=== PATIENT | female | born 1975 | race Caucasian/White ===

== ENCOUNTER 2021-04-28 21:18 | Inpatient (IN) | payer MEDICARE, OTHER ==
[~2021-04-28] VITALS: Ht 170.2 cm; Wt 215.9 kg
[2021-04-28 23:06] VITALS: BP 101/58
[2021-04-28] MEDS ORDERED: PROPOFOL IV EMULSION 10MG/ML 100 ML ONE (23:25)
[2021-04-28] MEDS ORDERED: NOREPINEPHRINE 8 MG/D5W 250 ML 250 ML ONE (23:42)
[2021-04-28] MEDS ORDERED: FENTANYL 2000MCG/NS 250 250 ML ONE (23:43)
[2021-04-28] MEDS: NOREPINEPHRINE 8 MG/D5W 250 ML 250 ML IV SCH (23:45)
[2021-04-28] MEDS ORDERED: FENTANYL CITRATE INJ 2,000 MCG in SODIUM CHLORIDE 0.9% 250ML 250 ML IV SCH (23:45)
[2021-04-28] MEDS ORDERED: PIPERACILLIN/TAZOBACTAM 3.375 GM in SODIUM CHLORIDE 0.9% 50ML 50 ML IV ONE (23:45)
[2021-04-29] VITALS (27 sets, daily range): BP systolic 70–127; BP diastolic 43–66
[2021-04-29 00:15] LABS: BASOPHILS % 0.2 % (0.0-1.0); HEMOGLOBIN 12.7 g/dL (12.0-16.0); LYMPHOCYTES # (AUTO) 0.6 (1.0-3.2); LYMPHOCYTES % 4.3 % (18.0-39.1); MEAN CORPUSCULAR HEMOGLOBIN 29.7 pg (28-32); MEAN CORPUSCULAR HGB CONC 30.2 g/dL (31-35); MEAN CORPUSCULAR VOLUME 98.4 fL (81-99); MONOCYTES # (AUTO) 1.1 (0.2-0.8); MONOCYTES % 8.9 % (4.4-11.3); NEUTROPHILS # (AUTO) 10.9 (2.1-6.9); NEUTROPHILS % 85.7 % (38.7-80.0); PLATELET COUNT 246 x10e3/uL (140-360); RED BLOOD COUNT 4.27 x10e6/uL (3.6-5.1); RED CELL DISTRIBUTION WIDTH 14.9 % (11.7-14.4)
[2021-04-29 00:25] LABS: INR 1.07; PROTHROMBIN TIME 14.1 seconds (11.9-14.5)
[2021-04-29 00:26] LABS: PARTIAL THROMBOPLASTIN TIME 25.2 seconds (23.8-35.5)
[2021-04-29 00:35] LABS: ALBUMIN 3.1 g/dL (3.5-5.0); ALBUMIN/GLOBULIN RATIO 0.9 (0.8-2.0); ANION GAP 18.4 mmol/L (8-16); CALCIUM 8.6 mg/dL (8.4-10.2); CREATININE, SERUM 1.39 mg/dL (0.57-1.11); POTASSIUM 4.4 mmol/L (3.5-5.1)
[2021-04-29] MEDS ORDERED: LYRICA150 MG PO (00:39)
[2021-04-29] MEDS ORDERED: METFORMIN HCL500 MG PO (00:39)
[2021-04-29] MEDS ORDERED: ZESTRIL40 MG PO (00:39)
[2021-04-29] MEDS ORDERED: ASPIRIN EC81 MG PO (00:39)
[2021-04-29] MEDS ORDERED: HYDRALAZINE HCL10 MG PO (00:39)
[2021-04-29] MEDS ORDERED: AMLODIPINE BESY10 MG PO (00:39)
[2021-04-29] MEDS ORDERED: ADVAIR 100-501 EACH INH (00:39)
[2021-04-29] MEDS ORDERED: HYDROCHLOROTHIA25 MG PO (00:39)
[2021-04-29] MEDS ORDERED: CELEBREX100 MG PO (00:39)
[2021-04-29] MEDS ORDERED: VENTOLIN HFA18 GM INH (00:39)
[2021-04-29] MEDS ORDERED: MONTELUKAST SOD10 MG PO (00:39)
[2021-04-29] MEDS ORDERED: PROAIR HFA INH8.5 GM INH (00:39)
[2021-04-29] MEDS ORDERED: SYNTHROID100 MCG PO (00:39)
[2021-04-29] MEDS ORDERED: PANTOPRAZOLE SO40 MG PO (00:39)
[2021-04-29] MEDS: SODIUM CHLORIDE 0.9% 1000ML 1,000 ML IV SCH ×2 (01:07→10:22)
[2021-04-29] MEDS ORDERED: PROPOFOL IV EMULSION 10MG/ML 100 ML ONE (01:36)
[2021-04-29] MEDS: ALBUTEROL/IPRATROPIUM 3 ML NEB NEB SCH ×4 (01:57→19:10)
[2021-04-29] MEDS: PROPOFOL IV EMULSION 10MG/ML 100 ML IV PRN ×6 (01:58→22:21)
[2021-04-29 02:23] LABS: ABG PCO2 62 mmHg (35-45)
[2021-04-29 02:24] LABS: ABG HCO3 39 mmol/L (22-26); ABG PO2 340 mmHg (80-105); ABG TCO2 40
[2021-04-29 05:20] LABS: CLARITY,URINE CLOUDY (CLEAR); COLOR,URINE YELLOW (YELLOW); KETONES,URINE 1+ (NEGATIVE); LEUKOCYTE ESTERASE ,URINE NEGATIVE (NEGATIVE); NITRITE,URINE POSITIVE (NEGATIVE); PROTEIN,URINE DIPSTICK >=300 (NEGATIVE); URINE UROBILINOGEN 1 mg/dL (0.2 - 1)
[2021-04-29 06:12] LABS: BACTERIA,URINE MANY /HPF; EPITHELIAL CELLS,URINE FEW /LPF; RBC,URINE >50 /HPF (0-5)
[2021-04-29] MEDS ORDERED: SODIUM CHLORIDE 0.9% 1000ML 1,000 ML IV ONE (06:45)
[2021-04-29] MEDS: BUDESONIDE 0.25 MG/2 ML NEB NEB SCH ×2 (07:00→19:10)
[2021-04-29] MEDS ORDERED: PIPERACILLIN/TAZOBACTAM 2.25 GM in SODIUM CHLORIDE 0.9% 50ML 50 ML IV SCH (08:00)
[2021-04-29] MEDS ORDERED: PIPERACILLIN/TAZOBACTAM SOD 2.25 GM VIAL ONE (08:11)
[2021-04-29] MEDS: NOREPINEPHRINE 8 MG/D5W 250 ML 250 ML IV SCH (08:21)
[2021-04-29] MEDS: NYSTATIN/TRIAMCINOLONE 15 GM CR TOP SCH (09:00)
[2021-04-29] MEDS: METHYLPREDNISOLONE SOD SUCC 40 MG/ML VIAL 1ML IV SCH ×2 (10:21→21:05)
[2021-04-29] MEDS ORDERED: Vancomycin IV 1.25 GM in SODIUM CHLORIDE 0.9% 250ML 250 ML IV SCH ×2 (14:00→14:45)
[2021-04-29] MEDS: MEROPENEM 500 MG in SODIUM CHLORIDE 0.9% 50ML 50 ML IV SCH ×2 (16:54→21:05)
[2021-04-29] MEDS: ENOXAPARIN SOD INJ 40 MG/0.4 ML SYR SC SCH (17:25)
[2021-04-29] MEDS ORDERED: FENTANYL CITRATE INJ 2,000 MCG in SODIUM CHLORIDE 0.9% 250ML 250 ML IV SCH (22:15)
[2021-04-29] MEDS ORDERED: FENTANYL 2000MCG/NS 250 250 ML ONE (22:26)
[2021-04-30] VITALS (24 sets, daily range): BP systolic 108–134; BP diastolic 53–65
[2021-04-30] MEDS: PROPOFOL IV EMULSION 10MG/ML 100 ML IV PRN ×5 (00:26→08:40)
[2021-04-30] MEDS: ALBUTEROL/IPRATROPIUM 3 ML NEB NEB SCH ×6 (00:34→19:58)
[2021-04-30] MEDS: MEROPENEM 500 MG in SODIUM CHLORIDE 0.9% 50ML 50 ML IV SCH ×4 (03:41→22:00)
[2021-04-30 05:29] LABS: BASOPHILS % 0.2 % (0.0-1.0); EOSINOPHILS % 0.2 % (0.0-6.0); HEMATOCRIT 38.1 % (34.2-44.1); HEMOGLOBIN 11.8 g/dL (12.0-16.0); LYMPHOCYTES # (AUTO) 0.8 (1.0-3.2); LYMPHOCYTES % 8.8 % (18.0-39.1); MEAN CORPUSCULAR HEMOGLOBIN 29.4 pg (28-32); MEAN CORPUSCULAR VOLUME 94.8 fL (81-99); MONOCYTES # (AUTO) 0.7 (0.2-0.8); NEUTROPHILS # (AUTO) 7.8 (2.1-6.9); NEUTROPHILS % 82.5 % (38.7-80.0); PLATELET COUNT 235 x10e3/uL (140-360); RED BLOOD COUNT 4.02 x10e6/uL (3.6-5.1); RED CELL DISTRIBUTION WIDTH 14.6 % (11.7-14.4)
[2021-04-30 06:00] LABS: ALBUMIN 2.7 g/dL (3.5-5.0); ALBUMIN/GLOBULIN RATIO 0.8 (0.8-2.0); ANION GAP 15.7 mmol/L (8-16); CALCIUM 8.1 mg/dL (8.4-10.2); CREATININE, SERUM 1.6 mg/dL (0.57-1.11); POTASSIUM 3.7 mmol/L (3.5-5.1)
[2021-04-30] MEDS: BUDESONIDE 0.25 MG/2 ML NEB NEB SCH (07:20)
[2021-04-30] MEDS: METHYLPREDNISOLONE SOD SUCC 40 MG/ML VIAL 1ML IV SCH ×2 (09:45→21:00)
[2021-04-30] MEDS: NYSTATIN/TRIAMCINOLONE 15 GM CR TOP SCH (09:46)
[2021-04-30 11:04] LABS: ABG HCO3 32 mmol/L (22-26); ABG PCO2 48 mmHg (35-45); ABG PH 7.43 (7.35-7.45); ABG PO2 91 mmHg (80-105); ABG TCO2 33
[2021-04-30] MEDS ORDERED: CLINDAMYCIN PHOS 900MG/ 50ML 50 ML IV SCH (12:00)
[2021-04-30] MEDS: FENTANYL 2000MCG/NS 250 250 ML IV SCH ×3 (12:18→18:15)
[2021-04-30] MEDS: MIDAZOLAM HCL 5MG/ML 10ML VIAL 100 ML IV PRN ×2 (12:19→23:50)
[2021-04-30] MEDS ORDERED: FUROSEMIDE INJ 10 MG/ML 4 ML VIAL IV ONE (14:30)
[2021-04-30 15:46] LABS: CREATININE,URINE RANDOM 104.5 mg/dL (47-110); TOTAL PROTEIN, URINE 14.3 mg/dL (1-14)
[2021-04-30] MEDS: ENOXAPARIN SOD INJ 40 MG/0.4 ML SYR SC SCH (16:50)
[2021-04-30] MEDS: NOREPINEPHRINE 8 MG/D5W 250 ML 250 ML IV SCH (23:45)
[2021-05-01] VITALS (27 sets, daily range): BP systolic 105–157; BP diastolic 55–95
[2021-05-01] MEDS: BUDESONIDE 0.25 MG/2 ML NEB NEB SCH ×3 (00:24→19:20)
[2021-05-01] MEDS: FENTANYL 2000MCG/NS 250 250 ML IV SCH (02:46)
[2021-05-01] MEDS: ALBUTEROL/IPRATROPIUM 3 ML NEB NEB SCH ×6 (03:40→23:50)
[2021-05-01] MEDS: MEROPENEM 500 MG in SODIUM CHLORIDE 0.9% 50ML 50 ML IV SCH ×4 (04:48→23:00)
[2021-05-01] MEDS: MIDAZOLAM HCL 5MG/ML 10ML VIAL 100 ML IV PRN (04:50)
[2021-05-01 06:50] LABS: BASOPHILS % 0.3 % (0.0-1.0); EOSINOPHILS # (AUTO) 0.1 (0.0-0.4); HEMATOCRIT 36.7 % (34.2-44.1); HEMOGLOBIN 11.5 g/dL (12.0-16.0); LYMPHOCYTES # (AUTO) 1.2 (1.0-3.2); LYMPHOCYTES % 12.2 % (18.0-39.1); MEAN CORPUSCULAR HEMOGLOBIN 29.7 pg (28-32); MEAN CORPUSCULAR HGB CONC 31.3 g/dL (31-35); MEAN CORPUSCULAR VOLUME 94.8 fL (81-99); MONOCYTES # (AUTO) 0.4 (0.2-0.8); MONOCYTES % 4.4 % (4.4-11.3); NEUTROPHILS # (AUTO) 8.1 (2.1-6.9); NEUTROPHILS % 81.1 % (38.7-80.0); PLATELET COUNT 245 x10e3/uL (140-360); RED BLOOD COUNT 3.87 x10e6/uL (3.6-5.1); RED CELL DISTRIBUTION WIDTH 14.7 % (11.7-14.4)
[2021-05-01 07:17] LABS: ALBUMIN 2.6 g/dL (3.5-5.0); ALBUMIN/GLOBULIN RATIO 0.8 (0.8-2.0); ANION GAP 15.9 mmol/L (8-16); CREATININE, SERUM 1.29 mg/dL (0.57-1.11); POTASSIUM 3.9 mmol/L (3.5-5.1)
[2021-05-01] MEDS: METHYLPREDNISOLONE SOD SUCC 40 MG/ML VIAL 1ML IV SCH ×2 (08:40→21:55)
[2021-05-01] MEDS: NICOTINE 14 MG/EA PATCH TOP SCH (08:47)
[2021-05-01] MEDS: NYSTATIN/TRIAMCINOLONE 15 GM CR TOP SCH (08:55)
[2021-05-01 11:41] LABS: BAND NEUTROPHILS % (MANUAL) 1 %; LYMPHOCYTES % (MANUAL) 10 % (19-48); MONOCYTES % (MANUAL) 3 % (3.4-9.0); NEUTROPHILS % (MANUAL) 84 % (40-74)
[2021-05-01 11:42] LABS: PLATELET ESTIMATE ADEQUATE; PLATELET MORPHOLOGY COMMENT NORMAL; RBC MORPHOLOGY COMMENT NORMAL
[2021-05-01 13:49] LABS: ABG HCO3 33 mmol/L (22-26); ABG PCO2 57 mmHg (35-45); ABG PH 7.36 (7.35-7.45); ABG PO2 84 mmHg (80-105); ABG TCO2 34
[2021-05-01] MEDS ORDERED: FUROSEMIDE INJ 10 MG/ML 4 ML VIAL IV ONE (14:30)
[2021-05-01] MEDS: Vancomycin IV 1 GM in SODIUM CHLORIDE 0.9% 250ML 250 ML IV SCH (14:38)
[2021-05-01] MEDS: ENOXAPARIN SOD INJ 40 MG/0.4 ML SYR SC SCH (18:32)
[2021-05-01] MEDS: NOREPINEPHRINE 8 MG/D5W 250 ML 250 ML IV SCH (23:45)
[2021-05-02] VITALS (20 sets, daily range): BP systolic 104–171; BP diastolic 66–95
[2021-05-02] MEDS: ALBUTEROL/IPRATROPIUM 3 ML NEB NEB SCH ×6 (03:05→19:38)
[2021-05-02] MEDS: Vancomycin IV 1 GM in SODIUM CHLORIDE 0.9% 250ML 250 ML IV SCH ×2 (03:57→16:16)
[2021-05-02] MEDS: MEROPENEM 500 MG in SODIUM CHLORIDE 0.9% 50ML 50 ML IV SCH ×4 (06:11→23:54)
[2021-05-02] MEDS: BUDESONIDE 0.25 MG/2 ML NEB NEB SCH ×2 (07:28→19:38)
[2021-05-02] MEDS: NYSTATIN/TRIAMCINOLONE 15 GM CR TOP SCH (08:27)
[2021-05-02] MEDS: NICOTINE 14 MG/EA PATCH TOP SCH (09:08)
[2021-05-02] MEDS: METHYLPREDNISOLONE SOD SUCC 40 MG/ML VIAL 1ML IV SCH ×2 (09:08→20:46)
[2021-05-02 11:23] LABS: CALCIUM IONIZED 1.2 mmol/L (1.09-1.30)
[2021-05-02 11:41] LABS: ANION GAP 14.2 mmol/L (8-16); CALCIUM 9.1 mg/dL (8.4-10.2); CREATININE, SERUM 0.83 mg/dL (0.57-1.11); POTASSIUM 4.2 mmol/L (3.5-5.1)
[2021-05-02] MEDS: ENOXAPARIN SOD INJ 40 MG/0.4 ML SYR SC SCH (17:11)
[2021-05-02] MEDS ORDERED: FUROSEMIDE INJ 10 MG/ML 2 ML VIAL IV ONE (17:45)
[2021-05-03] VITALS (10 sets, daily range): BP systolic 118–147; BP diastolic 58–76
[2021-05-03] MEDS ORDERED: SODIUM CHLORIDE 0.9% 1000ML 1,000 ML ONE (00:03)
[2021-05-03] MEDS: ALBUTEROL/IPRATROPIUM 3 ML NEB NEB SCH ×6 (03:20→22:46)
[2021-05-03 04:10] LABS: BASOPHILS % 0.2 % (0.0-1.0); EOSINOPHILS % 0.4 % (0.0-6.0); HEMATOCRIT 41.5 % (34.2-44.1); HEMOGLOBIN 12.9 g/dL (12.0-16.0); LYMPHOCYTES # (AUTO) 1.1 (1.0-3.2); LYMPHOCYTES % 11.6 % (18.0-39.1); MEAN CORPUSCULAR HEMOGLOBIN 29.5 pg (28-32); MEAN CORPUSCULAR HGB CONC 31.1 g/dL (31-35); MEAN CORPUSCULAR VOLUME 94.7 fL (81-99); MONOCYTES # (AUTO) 0.7 (0.2-0.8); MONOCYTES % 7.5 % (4.4-11.3); NEUTROPHILS # (AUTO) 7.6 (2.1-6.9); PLATELET COUNT 282 x10e3/uL (140-360); RED BLOOD COUNT 4.38 x10e6/uL (3.6-5.1)
[2021-05-03 04:34] LABS: ALBUMIN 2.9 g/dL (3.5-5.0); ALBUMIN/GLOBULIN RATIO 0.8 (0.8-2.0); ANION GAP 14.6 mmol/L (8-16); CALCIUM 9.2 mg/dL (8.4-10.2); CREATININE, SERUM 0.89 mg/dL (0.57-1.11); POTASSIUM 4.6 mmol/L (3.5-5.1)
[2021-05-03] MEDS: Vancomycin IV 1 GM in SODIUM CHLORIDE 0.9% 250ML 250 ML IV SCH ×2 (05:31→16:05)
[2021-05-03] MEDS: MEROPENEM 500 MG in SODIUM CHLORIDE 0.9% 50ML 50 ML IV SCH (06:20)
[2021-05-03] MEDS: BUDESONIDE 0.25 MG/2 ML NEB NEB SCH ×2 (07:00→18:55)
[2021-05-03] MEDS: NYSTATIN/TRIAMCINOLONE 15 GM CR TOP SCH (09:30)
[2021-05-03] MEDS: METHYLPREDNISOLONE SOD SUCC 40 MG/ML VIAL 1ML IV SCH ×2 (09:53→20:55)
[2021-05-03] MEDS: LEVOFLOXACIN 500 MG TAB PO SCH (16:05)
[2021-05-03] MEDS: ENOXAPARIN SOD INJ 40 MG/0.4 ML SYR SC SCH (16:05)
[2021-05-03] MEDS ORDERED: FUROSEMIDE INJ 10 MG/ML 2 ML VIAL IV NR (18:30)
[2021-05-04] VITALS (8 sets, daily range): BP systolic 125–158; BP diastolic 70–103
[2021-05-04] MEDS: ALBUTEROL/IPRATROPIUM 3 ML NEB NEB SCH ×5 (02:22→19:00)
[2021-05-04] MEDS: Vancomycin IV 1 GM in SODIUM CHLORIDE 0.9% 250ML 250 ML IV SCH (05:10)
[2021-05-04] MEDS: BUDESONIDE 0.25 MG/2 ML NEB NEB SCH (07:00)
[2021-05-04] MEDS: METHYLPREDNISOLONE SOD SUCC 40 MG/ML VIAL 1ML IV SCH ×2 (08:31→08:37)
[2021-05-04] MEDS: NYSTATIN/TRIAMCINOLONE 15 GM CR TOP SCH (08:31)
[2021-05-04] MEDS: LEVOFLOXACIN 500 MG TAB PO SCH (11:05)
[2021-05-04] MEDS: ENOXAPARIN SOD INJ 40 MG/0.4 ML SYR SC SCH (16:52)
[2021-05-05] VITALS (7 sets, daily range): BP systolic 116–168; BP diastolic 68–91
[2021-05-05 05:36] LABS: CALCIUM IONIZED 1.2 mmol/L (1.09-1.30)
[2021-05-05 06:08] LABS: ANION GAP 14.8 mmol/L (8-16); CALCIUM 9.3 mg/dL (8.4-10.2); CREATININE, SERUM 0.82 mg/dL (0.57-1.11); POTASSIUM 3.8 mmol/L (3.5-5.1)
[2021-05-05] MEDS: ALBUTEROL/IPRATROPIUM 3 ML NEB NEB SCH ×3 (06:20→14:50)
[2021-05-05] MEDS: BUDESONIDE 0.25 MG/2 ML NEB NEB SCH ×2 (06:20→19:00)
[2021-05-05] MEDS: NYSTATIN/TRIAMCINOLONE 15 GM CR TOP SCH (09:32)
[2021-05-05] MEDS: PREDNISONE 20 MG TAB PO SCH (09:32)
[2021-05-05] MEDS ORDERED: ALTEPLASE RECOMBINANT 2 MG/2 ML VIAL IV PRN (10:30)
[2021-05-05] MEDS: LEVOFLOXACIN 500 MG TAB PO SCH (11:49)
[2021-05-05] MEDS ORDERED: PREDNISONE20 MG PO (16:59)
[2021-05-05] MEDS ORDERED: ADVAIR 250-501 EACH INH (16:59)
[2021-05-05] MEDS: ENOXAPARIN SOD INJ 40 MG/0.4 ML SYR SC SCH (17:41)
[2021-05-06] VITALS (8 sets, daily range): BP systolic 124–152; BP diastolic 53–95
[2021-05-06] MEDS: ALBUTEROL/IPRATROPIUM 3 ML NEB NEB SCH ×5 (06:25→23:55)
[2021-05-06] MEDS: BUDESONIDE 0.25 MG/2 ML NEB NEB SCH ×2 (06:25→19:26)
[2021-05-06] MEDS: PREDNISONE 20 MG TAB PO SCH (08:54)
[2021-05-06] MEDS: PANTOPRAZOLE SOD 40 MG TABEC PO SCH (08:54)
[2021-05-06] MEDS: NYSTATIN/TRIAMCINOLONE 15 GM CR TOP SCH (08:55)
[2021-05-06] MEDS: LEVOFLOXACIN 500 MG TAB PO SCH (11:55)
[2021-05-07] VITALS: BP 144/78
[2021-05-07] MEDS: ALBUTEROL/IPRATROPIUM 3 ML NEB NEB SCH ×3 (03:00→11:02)
[2021-05-07 04:00] VITALS: BP 132/79
[2021-05-07 04:57] LABS: BASOPHILS % 0.2 % (0.0-1.0); EOSINOPHILS # (AUTO) 0.5 (0.0-0.4); EOSINOPHILS % 3.6 % (0.0-6.0); HEMATOCRIT 40.7 % (34.2-44.1); HEMOGLOBIN 12.6 g/dL (12.0-16.0); LYMPHOCYTES # (AUTO) 2.2 (1.0-3.2); LYMPHOCYTES % 18.1 % (18.0-39.1); MEAN CORPUSCULAR HEMOGLOBIN 29.1 pg (28-32); MONOCYTES # (AUTO) 1.2 (0.2-0.8); MONOCYTES % 9.3 % (4.4-11.3); NEUTROPHILS # (AUTO) 8.4 (2.1-6.9); NEUTROPHILS % 67.5 % (38.7-80.0); PLATELET COUNT 277 x10e3/uL (140-360); RED BLOOD COUNT 4.33 x10e6/uL (3.6-5.1)
[2021-05-07 05:16] LABS: ANION GAP 15.5 mmol/L (8-16); CREATININE, SERUM 0.82 mg/dL (0.57-1.11); POTASSIUM 3.5 mmol/L (3.5-5.1)
[2021-05-07] MEDS: BUDESONIDE 0.25 MG/2 ML NEB NEB SCH (06:40)
[2021-05-07 07:38] VITALS: BP 140/74
[2021-05-07 07:50] VITALS: BP 140/74
[2021-05-07] MEDS: PREDNISONE 20 MG TAB PO SCH (08:18)
[2021-05-07] MEDS: PANTOPRAZOLE SOD 40 MG TABEC PO SCH (08:18)
[2021-05-07] MEDS: NYSTATIN/TRIAMCINOLONE 15 GM CR TOP SCH (08:20)
[2021-05-07] MEDS ORDERED: BACITRACIN ZINC 15 GM OINT TOP SCH (09:00)
[2021-05-07 11:32] VITALS: BP 124/84
[2021-05-07] MEDS: LEVOFLOXACIN 500 MG TAB PO SCH (11:49)
[2021-05-07] MEDS ORDERED: ALBUTEROL1.25 MG/3 NEB (12:32)
[2021-05-07] MEDS ORDERED: IPRATROPIU0.2 MG/1 M INH (12:33)
[2021-05-07] MEDS ORDERED: LEVOFLOXACIN250 MG PO (12:35)
== END 2021-05-07 15:43 | disposition home or self-care (01) | DRG 871 ==
LOC: ICU 22:53 → IMCU 05-02 19:47 → MED/SURG3 05-04 16:35
PROVIDERS: ADMIT Internal Medicine; ATTEND Internal Medicine
PROC: 0BH18EZ Insertion of Endotracheal Airway into Trachea, Via Natural or Artificial Opening Endoscopic (ICD-10-PCS; principal; 2021-04-29)
PROC: 5A1945Z Respiratory Ventilation, 24-96 Consecutive Hours (ICD-10-PCS; 2021-04-29)
DX: A41.9 Sepsis, unspecified organism (principal); J96.21 Acute and chronic respiratory failure with hypoxia; J12.1 Respiratory syncytial virus pneumonia; R65.21 Severe sepsis with septic shock; J15.9 Unspecified bacterial pneumonia; N17.9 Acute kidney failure, unspecified; J45.901 Unspecified asthma with (acute) exacerbation; J44.1 Chronic obstructive pulmonary disease with (acute) exacerbation; N10 Acute pyelonephritis; Z68.45 Body mass index [BMI] 70 or greater, adult; J45.902 Unspecified asthma with status asthmaticus; E87.3 Alkalosis; E87.70 Fluid overload, unspecified; D64.9 Anemia, unspecified; E66.01 Morbid (severe) obesity due to excess calories; F17.210 Nicotine dependence, cigarettes, uncomplicated; E83.51 Hypocalcemia; G47.33 Obstructive sleep apnea (adult) (pediatric); E86.1 Hypovolemia; I12.9 Hypertensive chronic kidney disease with stage 1 through stage 4 chronic kidney disease, or unspecified chronic kidney disease; N18.9 Chronic kidney disease, unspecified; B95.62 Methicillin resistant Staphylococcus aureus infection as the cause of diseases classified elsewhere
CPT/HCPCS: 36415; 36600; 71045; 74018; 76770; 80048; 80053; 80202; 81001; 82570; 82805; 82948; 83605; 84156; 84300; 85025; 85610; 85730; 87040; 87070; 87071; 87086; 87186; 87205; 87400; 93306; 94002; 94003; 94640; 94660; 96361; 96365; 96366; 97139; 99251; J1650; J1940; J2185; J2543; J2920; J2997; J3370; J7030; J7050; J7512; U0002